=== PATIENT | female | born 1995 | race Caucasian/White ===

== ENCOUNTER 2020-06-30 00:15 | Emergency (ER) | payer BC ==
[~2020-06-30] VITALS: Ht 152.4 cm; Wt 63.5 kg
--- NOTE | 2020-06-30 01:30 | NUR ---
bibself c/o RLQ abd pain since 6pm. +NV -D. pt states constipated. LBM today. pt aox 4 rr even and unlabored. no sob noted. no nvd at this time. pt gowned and placed on monitor. pt evaluated by dr. high
[2020-06-30] MEDS ORDERED: MORPHINE SULFATE INJ 4 MG/ML DISP.SYRIN ONE (01:39)
[2020-06-30] MEDS ORDERED: ONDANSETRON HCL/PF 4 MG/2 ML VIAL ONE (01:39)
[2020-06-30 01:43] LABS: BASOPHILS % (AUTO) 0.2 % (0.0-2.0); EOSINOPHILS % (AUTO) 0.3 % (0.0-6.0); HEMATOCRIT 43 % (33-45); HEMOGLOBIN 14.4 g/dL (11.5-14.8); LYMPHOCYTES # (AUTO) 1.4 /CMM (0.8-4.8); LYMPHOCYTES % (AUTO) 12.5 % (20.0-44.0); MEAN CORPUSCULAR HGB CONC 34 g/dl (31.0-36.0); MEAN CORPUSCULAR VOLUME 88 fL (82-100); MONOCYTES # (AUTO) 0.5 /CMM (0.1-1.30); MONOCYTES % (AUTO) 4.5 % (2.0-12.0); NEUTROPHILS # (AUTO) 9.3 /CMM (1.8-8.9); NEUTROPHILS % (AUTO) 82.5 % (43.0-81.0); PLATELET COUNT (AUTO) 270 /CMM (150-450); RED BLOOD CELL COUNT(AUTO) 4.92 MIL/uL (4.0-5.2); WHITE BLOOD COUNT (AUTO) 11.3 K/uL (4.3-11.0)
[2020-06-30] MEDS: IV NS 0.9% 1,000 ML BAG IV ONE (01:51)
[2020-06-30] MEDS: MORPHINE SULFATE INJ 2 MG/ML DISP.SYRIN IV ONE (02:08)
[2020-06-30] MEDS: ONDANSETRON HCL/PF 4 MG/2 ML VIAL IVP ONE (02:09)
[2020-06-30 02:10] LABS: BILIRUBIN,URINE SMALL (NEGATIVE); UGLUCOSE NEGATIVE (NEGATIVE)
[2020-06-30 02:11] LABS: LEUKOCYTE ESTERASE ,URINE SMALL (NEGATIVE); NITRITE, URINE NEGATIVE (NEGATIVE)
[2020-06-30 02:20] LABS: COLOR,URINE YELLOW (YELLOW)
[2020-06-30 02:23] LABS: CALCIUM, SERUM 9.6 mg/dL (8.5-10.1); CREATININE 0.9 mg/dL (0.6-1.3); POTASSIUM 3.3 mmol/L (3.5-5.1)
[2020-06-30 02:24] LABS: BACTERIA,URINE Many /HPF (None Seen); RBC,URINE 81-100 /HPF (0-2); SQUAMOUS EPITHELIAL CELL,UR Few /HPF (None Seen)
[2020-06-30 02:28] LABS: ALBUMIN 4.5 g/dL (3.4-5.0); BILIRUBIN,DIRECT 0.1 mg/dL (0.0-0.2); BILIRUBIN,TOTAL 0.4 mg/dL (0.2-1.0); TOTAL PROTEIN, SERUM 7.9 g/dL (6.4-8.2)
[2020-06-30] MEDS ORDERED: diphenhydrAMINE HCL 50 MG/ML VIAL ONE (02:32)
[2020-06-30] MEDS: diphenhydrAMINE HCL 50 MG/ML VIAL IV ONE (02:32)
[2020-06-30] MEDS ORDERED: NITR100C6 PO (03:54)
[2020-06-30] MEDS ORDERED: TAMS-12 PO (03:54)
[2020-06-30] MEDS ORDERED: IBUP-1957 PO (03:54)
[2020-06-30] MEDS ORDERED: POLY17PO4 PO (03:55)
[2020-06-30] MEDS ORDERED: DOCU-141 PO (03:55)
--- NOTE | 2020-06-30 04:09 | NUR ---
Patient discharged to home in stable condition. Written and verbal after care instructions given. Patient verbalizes understanding of instruction. IV removed. Catheter intact and site benign. Pressure and 4x4 applied to site. No bleeding noted.
[2020-06-30 04:19] VITALS: BP 126/67
== END 2020-06-30 04:19 | disposition home or self-care (01) ==
LOC: ER 00:19
DX: N83.201 Unspecified ovarian cyst, right side (principal); K59.00 Constipation, unspecified; N20.0 Calculus of kidney; N39.0 Urinary tract infection, site not specified; Z88.2 Allergy status to sulfonamides; Z79.899 Other long term (current) drug therapy
CPT/HCPCS: 36415; 74176; 76705; 76856; 80048; 80076; 81001; 83690; 84703; 85025; 87086; 96361; 96374; 96375; 99285; J1200; J2270; J2405; J7030